=== PATIENT | female | born 1970 | race Caucasian/White ===

== ENCOUNTER 2018-09-06 08:44 | Day surgery (SDC) | payer OTHER ==
[~2018-09-06] VITALS: Ht 157.5 cm; Wt 69.0 kg
[~2018-09-06 08:44] MED LIST: ASPI81CH PO; ATEN25 PO; Aspirin EC81 MG PO; CETI5 PO; DIAZ5 PO; DOCU100 PO; ESTROVEN 155 M155 MG PO; Evening Primro500 M1 PO; Fenofibrate134 MG PO; Fish Oil 10001000 MG PO; Hair, Skin & N1 EACH PO; IBUP600 PO; IBUP800 PO; MEDR10 PO; METO25ER PO; Percocet 5-3251 EACH PO; VITAMIN C500 M1 PO; Vitamin D2000 UNIT PO
--- NOTE | 2018-09-06 09:40 | NUR ---
09/06/18 0940 Connie Zhang 1 IV MISS IN RW BY NICOLE CLARKATRED 1 IV MISS BY RN VALVE 1 GOOD IV IN LW BY NICOLE PT TOW
== END 2018-09-06 11:55 | disposition home or self-care (01) ==
LOC: ORSCSDS 08:44
PROVIDERS: Internal Medicine Gastroenterology
PROC: 0DBL8ZX Excision of Transverse Colon, Via Natural or Artificial Opening Endoscopic, Diagnostic (ICD-10-PCS; principal; 2018-09-06 10:00)
DX: Z12.11 Encounter for screening for malignant neoplasm of colon (principal); D12.3 Benign neoplasm of transverse colon; Z79.82 Long term (current) use of aspirin; Z79.899 Other long term (current) drug therapy
CPT/HCPCS: 88305; J2704; J7120

== ENCOUNTER 2023-12-18 09:39 | Day surgery (SDC) | payer OTHER ==
[~2023-12-18] VITALS: Ht 157.5 cm; Wt 68.6 kg
[~2023-12-18 09:39] MED LIST changes: +Lactated Ringer's 1,000 ML IV ONE; +propofoL 50 ML IV ONE
[2023-12-18] MEDS ORDERED: Lactated Ringer's 1,000 ML IV ONE (10:37)
[2023-12-18 12:05] VITALS: BP 147/86
== END 2023-12-18 12:08 | disposition home or self-care (01) ==
LOC: ORSCSDS 09:39
PROVIDERS: Internal Medicine Gastroenterology
PROC: 0DJD8ZZ Inspection of Lower Intestinal Tract, Via Natural or Artificial Opening Endoscopic (ICD-10-PCS; principal; 2023-12-18 11:15)
DX: Z12.11 Encounter for screening for malignant neoplasm of colon (principal); Z86.0101 Personal history of adenomatous and serrated colon polyps
CPT/HCPCS: J2704; J7120